=== PATIENT | female | born 1975 | race Caucasian/White ===

== ENCOUNTER 2020-05-04 15:06 | Outpatient (CLI) | payer OTHER, SELFPAY ==
--- NOTE | 2020-05-04 15:11 | MM_ITS ---
WS: [id number] BILATERAL DIGITAL SCREENING MAMMOGRAPHY WITH CAD CLINICAL INFORMATION: SCREENING HISTORY: Screening mammogram. No current complaints. COMPARISON: TECHNIQUE: Bilateral CC and MLO views. FINDINGS: Scattered fibroglandular densities bilaterally. No suspicious focal mass, asymmetry, calcifications, or architectural distortion. No evidence of malignancy. MM/[place] [id number] IMPRESSION: BI-RADS: 1-Negative FOLLOW UP: 1 Year Follow-up Recommend return to annual screening mammography.
== END 2020-05-04 15:07 | disposition home or self-care (01) ==
LOC: RADSHAW 15:10
PROVIDERS: PCP Physician Assistant; Visit Provider Physician Assistant
DX: Z12.31 Encounter for screening mammogram for malignant neoplasm of breast (principal)
CPT/HCPCS: 77067

== ENCOUNTER 2021-06-24 15:11 | Outpatient (CLI) | payer OTHER, SELFPAY ==
--- NOTE | 2021-06-24 15:19 | MM_ITS ---
WS: [id number] BILATERAL SCREENING DIGITAL MAMMOGRAM WITH CAD HISTORY: [place] COMPARISON: 05/04/2020, 10/29/2018 Bilateral CC and MLO views submitted. Computer aided detection analyzed. Breast composition: The breasts are almost entirely fatty. No suspicious masses, microcalcifications or architectural distortion. MM/[place] [id number] IMPRESSION: BI-RADS: 1-Negative FOLLOW UP: 1 Year Follow-up
== END 2021-06-24 15:12 | disposition home or self-care (01) ==
LOC: RADSHAW 15:15
PROVIDERS: PCP Physician Assistant; Visit Provider Physician Assistant
DX: Z12.31 Encounter for screening mammogram for malignant neoplasm of breast (principal)
CPT/HCPCS: 77067

== ENCOUNTER 2022-07-15 14:46 | Outpatient (CLI) | payer OTHER, SELFPAY ==
--- NOTE | 2022-07-15 14:54 | MM_ITS ---
WS: [id number] BILATERAL 3D TOMOSYNTHESIS DIGITAL SCREENING MAMMOGRAPHY WITH CAD CLINICAL INFORMATION: SCREENING HISTORY: Screening mammogram. LEFT breast pain and tenderness COMPARISON: June 24, 2021 TECHNIQUE: Bilateral CC and MLO views. FINDINGS: Scattered fibroglandular densities bilaterally. No suspicious focal mass, asymmetry, calcifications, or architectural distortion. No evidence of malignancy. A few incidental punctate calcifications. MM/[place] [id number] IMPRESSION: BI-RADS: 2-Benign FOLLOW UP: 1 Year Follow-up Recommend return to annual screening mammography.
== END 2022-07-15 14:47 | disposition home or self-care (01) ==
LOC: RAD 14:49
PROVIDERS: PCP Physician Assistant; Visit Provider Physician Assistant
DX: Z12.31 Encounter for screening mammogram for malignant neoplasm of breast (principal)
CPT/HCPCS: 77063; 77067

== ENCOUNTER → 2023-01-19 14:37 | Outpatient (BNVA) | payer OTHER, SELFPAY | PROVIDERS: PCP Physician Assistant; Referring Provider Physician Assistant; Visit Provider Dermatology | DX: L57.0 Actinic keratosis (principal); D22.5 Melanocytic nevi of trunk; L72.0 Epidermal cyst; L81.4 Other melanin hyperpigmentation; L82.1 Other seborrheic keratosis | CPT/HCPCS: 17000; 99203 ==

== ENCOUNTER 2023-07-28 15:19 | Outpatient (CLI) | payer OTHER, SELFPAY ==
--- NOTE | 2023-07-28 15:22 | MM_ITS ---
WS: [id number] BILATERAL 3D TOMOSYNTHESIS DIGITAL SCREENING MAMMOGRAPHY WITH CAD CLINICAL INFORMATION: SCREENING HISTORY: Screening mammogram. No current complaints. COMPARISON: 2022 TECHNIQUE: Bilateral CC and MLO views. FINDINGS: Scattered fibroglandular densities bilaterally. No suspicious focal mass, asymmetry, calcifications, or architectural distortion. No evidence of malignancy. A few incidental punctate calcifications. IMPRESSION: MM/[place] [id number] BI-RADS: 2-Benign FOLLOW UP: 1 Year Follow-up Recommend return to annual screening mammography.
== END 2023-07-28 15:20 | disposition home or self-care (01) ==
LOC: RAD 15:19
PROVIDERS: PCP Physician Assistant; Visit Provider Physician Assistant
DX: Z12.31 Encounter for screening mammogram for malignant neoplasm of breast (principal); R92.323 Mammographic fibroglandular density, bilateral breasts
CPT/HCPCS: 77063; 77067

== ENCOUNTER 2025-01-20 09:26 | Outpatient (CLI) | payer OTHER, SELFPAY ==
--- NOTE | 2025-01-20 09:40 | MM_ITS ---
WS: [id number] SCREENING DIGITAL BREAST TOMOSYNTHESIS MAMMOGRAM WITH CAD HISTORY: SCREENING COMPARISON: 07/28/2023, 07/15/2022, 06/24/2021 Bilateral CC and MLO with tomosynthesis and synthetic mammography submitted. Computer aided detection analyzed. Breast composition: The breasts are almost entirely fatty. New ovoid 3 x 2 x 4 mm mass noted in the medial inferior LEFT breast near 4:00 at a middle depth. This is a very superficial 6 mass. No distortion. Benign stable calcifications in the posterior RIGHT breast. MM/MM [facility] tomosynthesis [id number] IMPRESSION: BI-RADS: 0 - Incomplete: Need additional imaging evaluation. FOLLOW UP: Need Additional Imaging Recommendation: LEFT breast ultrasound, limited. Inferomedial LEFT breast near 4:00.
== END 2025-01-20 09:27 | disposition home or self-care (01) ==
LOC: RAD 09:29
PROVIDERS: PCP Physician Assistant; Visit Provider Physician Assistant
DX: Z12.31 Encounter for screening mammogram for malignant neoplasm of breast (principal); R92.313 Mammographic fatty tissue density, bilateral breasts; R92.1 Mammographic calcification found on diagnostic imaging of breast; N63.24 Unspecified lump in the left breast, lower inner quadrant
CPT/HCPCS: 77063; 77067

== ENCOUNTER 2025-02-03 12:36 | Outpatient (CLI) | payer OTHER, SELFPAY ==
--- NOTE | 2025-02-03 12:43 | US_ITS ---
WS: [id number] ULTRASOUND LEFT BREAST HISTORY: ABNORMAL MAMMOGRAM COMPARISON: 01/20/2025, 07/28/2023 TECHNIQUE: 2-D and Doppler. No nodule is identified along the inferior medial LEFT breast. There is no shadowing or mass. No skin thickening. US/US breast LT limited* [id number] IMPRESSION: BI-RADS: 2- Benign FOLLOW-UP: 1 Year Follow-up No abnormality is is noted on the ultrasound. Recommend return to annual screen ing mammography.
== END 2025-02-03 12:37 | disposition home or self-care (01) ==
LOC: RAD 12:37
PROVIDERS: PCP Physician Assistant; Visit Provider Physician Assistant
DX: R92.8 Other abnormal and inconclusive findings on diagnostic imaging of breast (principal)
CPT/HCPCS: 76642